=== PATIENT | female | born 1995 ===

== ENCOUNTER 2024-04-30 12:29 | Outpatient (CLI) | payer OTHER, SELFPAY ==
--- NOTE | 2024-04-30 12:15 | CRLHL7_ITS ---
For Patients: As a result of the Century Cures Act, medical imaging exams and procedure reports are released immediately into your electronic medical record. You may view this report before your referring provider. If you have questions, please contact your health care provider. INDICATION: First trimester scan, establish dates. COMPARISON: None. TECHNIQUE: Real-time bonner-scale imaging of the pelvis was performed. FINDINGS: Sonographic imaging demonstrates a single living intrauterine gestation. The embryo demonstrates a regular cardiac rate measuring 169 beats per minute. The embryo`s crown-rump length measurement of 3.0 cm corresponds to a gestational age of 9 weeks 6 days with a sonographic due date of 11/27/2024. There is a normal-appearing yolk sac. There are no gross abnormalities noted within the embryo at this early state of development. The gestational sac has a normal appearance. There is a lower uterine segment perigestational hemorrhage measuring 1.7 x 1.5 x 1.2 cm. A right lateral subchorionic hemorrhage is also present measuring 2.0 x 1.6 x 0.6 cm. The amount of fluid within the sac appears appropriate for gestational age. The cervix is closed. The myometrium appears normal. Corpus luteal cyst left ovary measuring 2.3 x 1.6 x 1.5 cm. Complex right ovarian cyst is present with mixed echoes measuring 7.0 x 5.5 x 4.3 cm. There are no suspicious fluid collections noted in the cul-de-sac. IMPRESSION: Single living intrauterine with sonographic gestational age 9 weeks 6 days and sonographic due date of 11/27/2024. There are 2 subchorionic hemorrhages measuring 1.7 x 1.5 x 1.2 cm inferiorly and 2.0 x 1.6 x 0.6 cm on the right. Complex right ovarian cyst is present extending into the right adnexa with mixed echoes measuring 7.0 x 5.5 x 4.3 cm, dermoid cyst versus hemorrhagic cyst. Dictated by Carlos Eller MD @ 04/30/2024 8:52:54 PM (Electronically Signed)
== END 2024-04-30 12:30 | disposition home or self-care (01) ==
LOC: US 12:30
PROVIDERS: Visit Provider Advanced Practice Midwife
DX: Z34.91 Encounter for supervision of normal pregnancy, unspecified, first trimester (principal); O20.9 Hemorrhage in early pregnancy, unspecified; O34.81 Maternal care for other abnormalities of pelvic organs, first trimester; N83.201 Unspecified ovarian cyst, right side; Z3A.09 9 weeks gestation of pregnancy
CPT/HCPCS: 76817

== ENCOUNTER 2024-04-30 13:14 | Outpatient (CLI) | payer OTHER, SELFPAY | END 2024-04-30 13:15 | disposition home or self-care (01) | PROVIDERS: PCP Advanced Practice Midwife; Visit Provider Advanced Practice Midwife | DX: Z34.91 Encounter for supervision of normal pregnancy, unspecified, first trimester (principal) | CPT/HCPCS: 83020; 83021; 85660; 86592; 86703; 86704; 86706; 86762; 86787; 86803; 86850; 86900; 86901; 87086; 87340 ==

== ENCOUNTER 2024-07-10 12:20 | Outpatient (CLI) | payer BC, SELFPAY | END 2024-07-10 12:21 | disposition home or self-care (01) | LOC: US 12:20 | PROVIDERS: Visit Provider Advanced Practice Midwife | DX: Z34.92 Encounter for supervision of normal pregnancy, unspecified, second trimester (principal); O99.891 Other specified diseases and conditions complicating pregnancy; Z3A.19 19 weeks gestation of pregnancy | CPT/HCPCS: 76805 ==

== ENCOUNTER 2024-09-11 09:39 | Outpatient (CLI) | payer BC, SELFPAY | END 2024-09-11 09:40 | disposition home or self-care (01) | PROVIDERS: Visit Provider Obstetrics & Gynecology | DX: Z34.93 Encounter for supervision of normal pregnancy, unspecified, third trimester (principal); Z3A.28 28 weeks gestation of pregnancy | CPT/HCPCS: 82947; 86592 ==

== ENCOUNTER 2024-10-23 14:08 | Outpatient (CLI) | payer BC, SELFPAY | END 2024-10-23 14:09 | disposition home or self-care (01) | LOC: NFLDREF 10-26 17:12 | PROVIDERS: Visit Provider Obstetrics & Gynecology | DX: Z34.83 Encounter for supervision of other normal pregnancy, third trimester (principal) | CPT/HCPCS: 82728 ==

== ENCOUNTER 2024-11-13 10:45 | Outpatient (CLI) | payer BC, SELFPAY | END 2024-11-13 10:46 | disposition home or self-care (01) | LOC: NFLDREF 11-18 02:43 | PROVIDERS: Visit Provider Obstetrics & Gynecology | DX: Z34.83 Encounter for supervision of other normal pregnancy, third trimester (principal) | CPT/HCPCS: 87081; 87653 ==

== ENCOUNTER 2024-11-27 12:06 | Inpatient (IN) | payer BC, SELFPAY ==
[2024-11-27] VITALS (12 sets, daily range): BP systolic 109–115; BP diastolic 70–73; PULSE 60–85; RESP 14–20; TEMP 36.1–36.9; O2SAT 100; BMI 24.0
[2024-11-27] MEDS: AMPICILLIN 2 GM in 0.9 % SODIUM CHLORIDE Mini-bag 100 ML IVPB (12:31)
[2024-11-27 12:40] LABS: Hematocrit* 34.3 % (33.0-51.0); Hemoglobin* 11.0 gm/dL (12.0-16.0); Immature Granulocytes Abs Auto 0.01 K/uL (0.00-0.30); Immature Granulocytes Pct Auto 0.2 %; Lymphocytes Absolute Auto 1.61 K/uL (0.90-2.90); Mean Corpuscular HGB Conc 32 gm/dL (32-36); Mean Corpuscular Hemoglobin 27 pg (26-34); Mean Corpuscular Volume 85 fL (80-100); RDW Coefficient of Variation % 13.4 % (11.5-15.5); Red Blood Count* 4.06 m/uL (4.00-5.20); White Blood Count* 6.64 K/uL (4.50-11.00)
[2024-11-27 12:44] LABS: Slide Review Reflex No
[2024-11-27] MEDS: AMPICILLIN 1 GM in 0.9 % SODIUM CHLORIDE Mini-bag 100 ML IVPB ×2 (16:25→20:31)
--- NOTE | 2024-11-27 16:29 | P.LDBA_ITS ---
Subjective History of Present Illness Date Seen: 11/27/24 Narrative: Patient is being admitted to Labor and Delivery for delivery after SROM this morning at around 7am. She is a 29 year old at 39 4/7 weeks gestation. Her full history and physical was dictated by Dr. Caruso on 11/13/24. Please see this for details. Patient had routine appointment today in clinic and described a watery like discharge since this morning at around 7am. AmniSure was completed and found positive. Recommendation was given for admission to the hospital. Specific Issues/Plans : [place] Adopted son: Ayush Daughters: Mary Crouch Baby: Girl! # GBS postive Ampicillin for prophylaxis #Declined 1hr GTT/Fresh test/1 week QID BS's at home * Discussed risks of undiagnosed GDM at 28wks (NDP) * Hgb A1C & fasting glucose 09/11/24: hgbA1c = 4.8%. Fasting glucose 75. # Echogenic foci left ventricle, possibly seen on anatomy US Discussed genetic screening, declines level 2 #Anemia at 28w4d on 09/11/24: hgb 10.9 Start iron supplement QOD with food. Recheck hgb at 34 weeks 10/23/24: 10.3, Ferritin 5.6 (L) Increase iron supplement to 2 tabs PO QOD w/ vitamin C. # Complex right ovarian cyst measuring 7.0 x 5.5 x 4.3cm at viability scan. Asymptomatic. Stable at anatomy scan. # BLE and Vulvar varicosities * 09/11/24: Discussed ASA 81mg daily (declined), warm compresses and compression stockings Vaccines Covid: Flu: Tdap: declined RSV:N/A OB - Problem Based A/P Additional Plan (1) : Status: Acute Plan 1. SROM at around 7am today. GBS positive, ampicillin per protocol. 2. Patient would like the least amount of interventions and has politely decli surinder cervical checks at the moment. Will highly encourage cervical check at around 7 pm since it would be 12 hours after SROM. 3. Low risk and intermittent monitoring being completed. 4. Planning unmedicated delivery, but open to epidural. 5. Expect a vaginal delivery. OB Result Labs Labs: Hemoglobin upon admission 11.0mg/dL, normal platelets. 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
[2024-11-28] VITALS (21 sets, daily range): BP systolic 95–129; BP diastolic 55–71; PULSE 60–97; RESP 14–18; TEMP 36.3–37.3; O2SAT 97–99
[2024-11-28] MEDS: AMPICILLIN 1 GM in 0.9 % SODIUM CHLORIDE Mini-bag 100 ML IVPB (00:27)
[2024-11-28] MEDS: OXYTOCIN 30 unit/500 ML in NS 30 UNIT/500 ML BAG 300 UNIT IVPB (00:54)
[2024-11-28] MEDS: LIDOCAINE 1 % PF 30 ML INJECTION (01:06)
--- NOTE | 2024-11-28 01:23 | W.PM.OBVAGDE ---
OB Procedure Vag Delivery Mother Details Mother Details: The patient is a 29 year-old, 3, Para 2, admitted on 11/27/24 at 39 4/7 Days gestation. Patient admitted after SROM at home at around 7am on 11/27/24. Patient was admitted and given IV antibiotics for GBS positive status. Patient progressed on her own w/o any interventions. : 3 Para: 2 Weeks Gestation: 39.5 Admission Date: 11/27/24 Additional Details Amniotic Membrane Status: SROM Amniotic Membrane Rupture Date: 11/27/24 Amniotic Membrane Rupture Time: 07:00 Amniotic Membrane Fluid Description: Clear Analgesia/Anesthesia Type: None Waterbirth: No Pitcoin: No Intrapartal Events: None Labor Onset: 23:30 Complete: 00:40 Pushin:40 Heart: heart tones during second stage were intermittently auscultated and in the 130s-140s. Delivery Details Delivery Date: 11/28/24 Delivery Time: 00:51 Route of delivery: Infant Gender: Female Viability: Alive; Heart Rate Present Position at Delivery: OP Delivery Details: Delivered via spontaneous vaginal delivery. Infant was placed on maternal abdomen.? Cord was clamped and cut after a 30-60 second delay. Nose and mouth were bulb suctioned.? weight pending. 1 Minute Interval Total Score: 8 5 Minute Interval Total Score: 9 Additional Details Shoulder Dystocia: No Placenta Delivery Time: 01:01 Placental Delivery Description: Spontaneous Delivery repair: Vicryl Procedure Done: Global Blood Loss: 300 Laceration: Perineal - 2nd Degree Episiotomy Description: None Blood Loss Measurement Type: EBL Bakri Used: No Sponge/Need Count Correct: Yes Cord Vessel Description: 3 Vessels Event Summary Status: Mother and infant were stable after delivery. Disposition: floor
[2024-11-29 00:47] VITALS: BP 94/61; PULSE 91; RESP 16; TEMP 37.1; O2SAT 97
[2024-11-29 06:01] LABS: Hemoglobin* 9.6 gm/dL (12.0-16.0)
[2024-11-29 09:00] VITALS: BP 103/60; PULSE 88; RESP 16; TEMP 36.4; O2SAT 97
[2024-11-29] MEDS: DOCUSATE SODIUM 100 MG CAPSULE PO (09:45)
--- NOTE | 2024-11-29 13:53 | PM.OBPNVD1 ---
OB - PN:Subj Subjective Time Seen by Provider: 09:15 Date Seen: 11/29/24 Narrative: Overnight patient had notes sensitive varicose veins on the medial aspect of her knee bilaterally. She has longstanding varicose veins. Her pain is well controlled on oral pain medications. She is tolerating a regular diet. She has passed flatus. She is ambulating without difficulty. Lochia is scant. She is urinating without mccauley. Patient denies chest pain, SOB, n/v, headache, RUQ pain, vision changes, dizziness. Requesting to stay an additional night. Discussed with patient her Anemia. OK with PO iron. OB - PN: Obj Exam Physical Exam: Vital signs: Temp Pulse Resp BP Pulse Ox O2 Del Method 98.8 F 91 16 94/61 97 Room Air 11/29/24 00:47 11/29/24 00:47 11/29/24 00:47 11/29/24 00:47 11/29/24 00:47 11/29/24 00:47 Narrative: Physical exam: General: No acute distress Psych: Alert and oriented x4, full affect HEENT: Normocephalic, atraumatic Neck: No cervical adenopathy, no thyromegaly Heart: Regular rate and rhythm, no murmur rub or gallop Lungs: Clear to auscultation bilaterally Abdomen: Normoactive bowel sounds, soft, no tenderness, rebound, or guarding, no masses, no hepatosplenomegaly, no hernias Skin: No lesions or rashes Breasts: no nodules or masses, no nipple discharge, no axillary adenopathy Lower extremities: No edema or erythema. Varicose vein clusters on medial aspect of knees bilaterally. Congested. Pelvic exam: Mons normal, clitoris normal, urethral meatus normal. Labia majora with varicosity noted. Soft and decompressed. Perineum and anus normal appearance. Sutures intact and tissue appears healthy. Minimal bleeding. Deferred internal exams. OB - PN: Obj Data Labs Labs: Laboratory Results - last 24 hr 11/29/24 05:41 Hgb 9.6 L OB - PN: A/P Delivery Assessment and Plan (1) : Status: Acute (2) Varicose veins during : Status: Acute Assessment and Plan: - Advised heat pack - Declined NSAID (3) Acute blood loss anemia: Status: Acute Assessment and Plan: - VSS - Hgb 11.0 --> 9.6 gm/dL - PO iron QMWF
[2024-11-29 16:00] VITALS: BP 81/52; PULSE 72; RESP 16; TEMP 36.5; O2SAT 97
[2024-11-29 22:46] VITALS: BP 92/58; PULSE 63; RESP 16; TEMP 36.7; O2SAT 98
[2024-11-29] MEDS: LANOLIN CREAM 1 APPLIC TOPICAL (23:06)
--- NOTE | 2024-11-30 07:55 | PM.OBPNVD1 ---
OB - PN:Subj Subjective Date Seen: 11/30/24 Narrative: Sherry is a 29 y.o. who was admitted to L & D for []. ?She had an [uncomplicated] [NVD] [].?The patient feels well. ?The pain is well controlled with current medications. ?She has no new complaints. ?She is [breast feeding] and reports things are [] going well.? the patient has done well.? Vitals have been stable.? She has remained afebrile.? Has a good appetite, is tolerating a general diet. ?She is voiding without difficulty.? She is passing gas and has [not] had a bowel movement.? She is ambulating and denies any dizziness.? Has [Small] amount of rubra lochia. ?She is planning [] for prevention. OB - PN: Obj Exam Physical Exam: Vital signs: Temp Pulse Resp BP Pulse Ox O2 Del Method 98.1 F 63 16 92/58 L 98 Room Air 11/29/24 22:46 11/29/24 22:46 11/29/24 22:46 11/29/24 22:46 11/29/24 22:46 11/29/24 22:46 Narrative: Sherry is a 29 y.o. G 3 P 3 now who was admitted to L & D for SROM. ?She had a NVD that was uncomplicated. The patient feels well. ?The pain is well controlled with current medications. ?She has no new complaints. ?She is breast feeding and reports things are going well for the most part. she does c/o increased tenderness to the R nipple. Will see how it goes, and will f/u with of problem persists/worsens. otherwise no further c/o RE . the patient has done well.? Vitals have been stable.? She has remained afebrile.? Has a good appetite, is tolerating a general diet. ?She is voiding without difficulty.? She is passing gas and has not had a bowel movement.? She is ambulating and denies any dizziness.? Has small amount of rubra lochia. Problems: varicose veins OB - PN: A/P Delivery Assessment and Plan (1) : Status: Acute (2) Varicose veins during : Status: Acute (3) Acute blood loss anemia: Status: Acute (4) Vaginal delivery: Status: Acute (5) Lactating mother: Status: Acute Plan Discharge home with baby.? Follow up in 2 weeks and 6 weeks.? , may see if needed? Hgb 9.6. Vitron C QOD? Labs WNL except for Hgb. taking oral iron and will continue in PP period Call for signs/symptoms of preeclampsia? For pain control of perineum, breast and pelvic pain, take 600 mg Ibuprofen every 6 hours as needed by mouth or 1000 mg acetaminophen (Tylenol) every 6 hours by mouth as needed. You can alternate these so you are taking something every 3 hours as needed. A heating pad can also be used for your abdomen or breasts. You may also take docusate sodium up to twice daily to soften your stools and help to prevent constipation. You may wean off of it when your stools return to normal.? Plan day: 2 Plan: routine care Procedures Procedures Performed: normal spontaneous delivery
[2024-11-30 08:46] VITALS: BP 113/79; PULSE 70; RESP 16; TEMP 36.9; O2SAT 100
[2024-11-30] MEDS: FERROUS SULFATE 325 MG TABLET PO (08:51)
[2024-11-30] MEDS: DOCUSATE SODIUM 100 MG CAPSULE PO (08:51)
--- NOTE | 2024-11-30 12:36 | PM.OBDSVD1 ---
DS: Providers Provider Date Seen: 11/30/24 Date of admission: 11/27/24 12:06 Primary care physician: Not a Local Provider Admitting Clinician: Iraida Pacheco MD Attending Physician on discharge: Iraida Pacheco MD DS: Diagnosis Discharge Diagnosis (1) Lactating mother: Status: Acute (2) Vaginal delivery: Status: Acute (3) Acute blood loss anemia: Status: Acute (4) Varicose veins during : Status: Acute (5) care and examination immediately after delivery: Status: Acute Exam Narrative: Exam Narrative: GENERAL APPEARANCE:? normal affect, alert, no distress MOOD:? appropriate ABDOMEN:? not assessed as no c/o heavy bleeding. per nursing, has been appropriate; firm and one below with scant flow PERINEUM:? there is a Perineal Laceration that is healing well. EXTREMITIES:? normal and no edema Const: Vital Signs, click to edit/add: Vital Signs - 24 hr 11/29/24 16:00 11/29/24 22:46 11/30/24 08:46 Temperature 97.7 F 98.1 F 98.5 F Pulse Rate [Pulse Oximeter] 72 63 70 Respiratory Rate 16 16 16 Blood Pressure [Ri ght Arm] 81/52 L 92/58 L 113/79 Pulse Oximetry 97 98 100 Oxygen Delivery Me thod Room Air Room Air Room Air OB - DS: Summary Hospital Course Hospital Course: Please see previous note for documentation. Pt desired to d/c. note added. Infant Gender: Female Time Spent with Patient Time attestation: Total time spent providing and/or coordinating discharge services: Discharge Plan Discharge Disposition: Home, Self-Care Date of Admission: 11/27/24 12:06 Attending Provider on Discharge: janette santiago Primary Care Provider: Provider,Not a Local Condition: Stable Anticipated Discharge Date/Time: 11/30/24 11:34 Discharge Medications: New ibuprofen 600 mg Tablet 600 mg PO Q6H PRNQty: 30 0RF acetaminophen 500 mg Tablet 1,000 mg PO Q6H PRNQty: 0 0RF docusate sodium 100 mg Capsule 100 mg PO DAILY Qty: 0 0RF Continued (DME) comp.stocking,thigh,long,small Misc See Rx Instructions .Route Qty: 12 0RF Rx Instructions: As directed One Daily [id number] mg-mcg-mg combo pack 1 pkg PO DAILY Discontinued EZFE 200 200 mg iron capsule 200 mg PO QDAY Discharge Orders: Discharge Order (Routine); Ordered 11/30/24 Ordered By: Janette Santiago Patient Education: OB Over the Counter Medication Information, OB Vaginal/Breast Feeding Activity Level: No Restrictions and Activity as Tolerated Discharge Diet: Regular and High Fiber Follow Up Appointments: [facility] [Provider Group] Provider,Not a Local [Primary Care Provider, Family Practice] Forms: [employer] Info Instructions
== END 2024-11-30 13:20 | disposition home or self-care (01) | DRG 560 ==
PROVIDERS: Admitting Provider Obstetrics & Gynecology; Visit Provider Obstetrics & Gynecology
DX: O99.824 Streptococcus B carrier state complicating childbirth (principal); O99.02 Anemia complicating childbirth; D62 Acute posthemorrhagic anemia; O70.1 Second degree perineal laceration during delivery; O87.4 Varicose veins of lower extremity in the puerperium; I83.813 Varicose veins of bilateral lower extremities with pain; Z37.0 Single live birth; Z3A.39 39 weeks gestation of pregnancy; Z11.3 Encounter for screening for infections with a predominantly sexual mode of transmission
CPT/HCPCS: 36415; 85018; 85025; 86592; 86850; 86900; 86901; A9270; J0290; J2003

== ENCOUNTER 2025-01-08 10:44 | Outpatient (CLI) | payer BC, SELFPAY ==
[2025-01-10 16:45] LABS: HPV Source Cervix
[2025-01-13 09:56] LABS: Pap Test Digital Imaging Done
== END 2025-01-08 10:45 | disposition home or self-care (01) ==
PROVIDERS: Visit Provider Registered Nurse
DX: Z12.4 Encounter for screening for malignant neoplasm of cervix (principal)
CPT/HCPCS: 87624; 87625; 88141; 88142; 88175